=== PATIENT | male | born 1980 | race African-American/Black ===

== ENCOUNTER 2020-10-07 16:59 | Emergency (ER) | payer MEDICAID ==
[~2020-10-07] VITALS: Ht 175.3 cm; Wt 104.0 kg
[2020-10-07] MEDS ORDERED: TETANUS, DIPHTHERIA, PERTUSSIS VAC/PF 0.5ML (>7YR OLD) IM ONE (18:30)
[2020-10-07] MEDS ORDERED: ACETAMINOPHEN 325MG TABLET PO ONE (18:30)
[2020-10-07] MEDS ORDERED: LIDOCAINE 1%/EPI 1:100,000 10 ML VIAL IJ ONE (20:45)
[2020-10-07] MEDS ORDERED: BACITRACIN ZINC OINT UDPKT TOP ONE (20:45)
[2020-10-07 21:23] VITALS: BP 137/76
[2020-10-07] MEDS ORDERED: LIDOCAINE HCL/EPINEPHRINE 1%-EPI 1:100,000 20 ML VIAL INFIL NR (21:30)
== END 2020-10-07 21:24 | disposition home or self-care (01) ==
LOC: ER 16:59
DX: S01.01XA Laceration without foreign body of scalp, initial encounter (principal); F12.10 Cannabis abuse, uncomplicated; Y04.0XXA Assault by unarmed brawl or fight, initial encounter; Y93.89 Activity, other specified; Y92.89 Other specified places as the place of occurrence of the external cause; Y99.8 Other external cause status
CPT/HCPCS: 12002; 70450; 90471; 90715; 99284; Z7610; J3490

== ENCOUNTER 2020-10-09 10:42 | Emergency (ER) | payer MEDICAID ==
[~2020-10-09] VITALS: Ht 172.7 cm; Wt 100.0 kg
[2020-10-09 10:54] VITALS: BP 139/91
[2020-10-09] MEDS ORDERED: BACITRACIN ZINC OINT UDPKT TOP ONE (11:15)
== END 2020-10-09 11:37 | disposition home or self-care (01) ==
LOC: ER 10:42
DX: Z48.00 Encounter for change or removal of nonsurgical wound dressing (principal)
CPT/HCPCS: 99281

== ENCOUNTER 2020-10-17 09:57 | Emergency (ER) | payer MEDICAID ==
[~2020-10-17] VITALS: Ht 172.7 cm; Wt 100.0 kg
[2020-10-17 09:58] VITALS: BP 140/96
== END 2020-10-17 10:23 | disposition home or self-care (01) ==
LOC: ER 10:22
DX: S01.01XD Laceration without foreign body of scalp, subsequent encounter (principal); Z48.02 Encounter for removal of sutures; X58.XXXD Exposure to other specified factors, subsequent encounter
CPT/HCPCS: 99281; Z7610